=== PATIENT | male | born 1960 | race Caucasian/White ===

== ENCOUNTER 2017-12-19 11:43 | Emergency (ER) | payer OTHER | END 2017-12-19 13:05 | disposition left against medical advice (07) | LOC: D.ER 11:43 | DX: R42 Dizziness and giddiness (principal) ==

== ENCOUNTER 2017-12-23 10:40 | Emergency (ER) | payer OTHER ==
[2017-12-23 11:22] LABS: BASOPHILS 0.2 % (0-2); EOSINOPHILS 1.4 % (0-7); HEMATOCRIT 32.8 % (42.0-54.0); HEMOGLOBIN 9.8 g/dL (13.5-17.5); IMMATURE GRANULOCYTES 0.2 % (0-5); LYMPHOCYTES 7.1 % (15-50); MCH 23.1 pg (26.0-34.0); MCHC 29.9 g/dL (31.0-37.0); MCV 77.2 fL (80.0-100.0); MEAN PLATELET VOLUME 9.1 fL (7.4-10.4); MONOCYTES 11.4 % (2-11); NEUTROPHILS 79.7 % (40-80); RBC 4.25 10x6/uL (4.20-6.10); RDW 17.5 % (11.5-14.5)
[2017-12-23 11:25] LABS: PLATELET COUNT 472 10x3/uL (130-400)
[2017-12-23 11:40] LABS: ALBUMIN 2.4 g/dL (3.4-5.0); ALKALINE PHOSPHATASE 122 U/L (46-116); ALT (SGPT) 14 U/L (10-68); CALC OSMOLALITY 273 mosm/kg (275-300); CALCIUM 8.3 mg/dL (8.5-10.1); CARBON DIOXIDE 29.8 mmol/L (21.0-32.0); CHLORIDE - SERUM 99 mmol/L (98-107); CREATININE - SERUM 0.7 mg/dL (0.6-1.3); GLUCOSE 117 mg/dL (74-106); POTASSIUM - SERUM 3.5 mmol/L (3.5-5.1); PROTEIN - SERUM 7.7 g/dL (6.4-8.2); SODIUM 136 mmol/L (136-145); UREA NITROGEN 14 mg/dL (7-18); eGFR NON AFRICAN AMERICAN > 90 mL/min (90-120)
[2017-12-23 11:48] LABS: CREATINE KINASE 90 UL (21-232); MAGNESIUM - SERUM 1.8 mg/dL (1.8-2.4); PRO BNP 1602 pg/mL (0-125); TROPONIN-I 0.044 ng/mL (0.000-0.060)
== END 2017-12-23 15:59 | disposition home or self-care (01) ==
LOC: D.ER 10:40
PROVIDERS: Emergency Medicine
DX: R06.00 Dyspnea, unspecified (principal); D64.9 Anemia, unspecified; I10 Essential (primary) hypertension; Z85.118 Personal history of other malignant neoplasm of bronchus and lung; F20.9 Schizophrenia, unspecified; F17.200 Nicotine dependence, unspecified, uncomplicated

== ENCOUNTER 2017-12-31 16:08 | Emergency (ER) | payer OTHER | END 2017-12-31 17:38 | disposition left against medical advice (07) | LOC: D.ER 16:08 | DX: I10 Essential (primary) hypertension (principal) ==